=== PATIENT | female | born 1990 | race Two or more races ===

== ENCOUNTER 2023-03-30 12:26 | Emergency (ER) | payer BC ==
[~2023-03-30] VITALS: Ht 157.5 cm; Wt 59.0 kg
[2023-03-30 12:27] VITALS: O2SAT 99
[2023-03-30] MEDS: IBUPROFEN 600MG TABLET PO ONE (13:31)
[2023-03-30] MEDS ORDERED: IBUP-2029 MT (13:50)
[2023-03-30 14:24] VITALS: BP 120/74; PULSE 78; RESP 16; TEMP 97.2
== END 2023-03-30 14:28 | disposition home or self-care (01) ==
LOC: ER 12:49
DX: N64.4 Mastodynia (principal); R07.89 Other chest pain; Z98.890 Other specified postprocedural states
CPT/HCPCS: 71045; 93005; 99283

== ENCOUNTER 2023-04-09 18:35 | Emergency (ER) | payer BC ==
[~2023-04-09] VITALS: Ht 157.5 cm; Wt 62.0 kg
[~2023-04-09 18:35] MED LIST: IBUP-2029 MT
[2023-04-09 18:52] VITALS: O2SAT 100
[2023-04-09 19:55] LABS: HEMATOCRIT. 36.9 % (36.0-48.0); HEMOGLOBIN. 12.5 g/dL (12.0-16.0); MEAN CORPUSCULAR HEMOGLOBIN 29.1 pg (28.0-32.0); MEAN CORPUSCULAR HGB CONC 33.7 g/dL (31.0-37.0); MEAN CORPUSCULAR VOLUME 86.1 fL (81.0-99.0); MEAN PLATELET VOLUME 7.2 fl (7.4-10.4); PLATELET 234 x1000/uL (130-400); RED BLOOD CELL COUNT 4.29 mill/uL (4.2-5.4); RED CELL DISTRIBUTION WIDTH 12.9 % (11.6-14.6); WHITE BLOOD COUNT 5.5 x1000/uL (4.5-11.0)
[2023-04-09 19:56] LABS: DIFFERENTIAL COMMENT 1
[2023-04-09 20:09] LABS: ALANINE AMINOTRANSFERASE 8 IU/L (10-49); ALBUMIN 4.7 g/dL (3.2-4.8); ASPARTATE AMINOTRANSFERASE 20 IU/L (<34); BILIRUBIN TOTAL 0.6 mg/dL (0.1-1.0); CALCIUM 9.2 mg/dL (8.7-10.4); CARBON DIOXIDE 24 mEq/L (21-32); CHLORIDE 107 mEq/L (98-107); CREATININE 0.9 mg/dL (0.6-1.0); GLUCOSE 106 mg/dL (70-105); POTASSIUM 3.7 mEq/L (3.5-5.1); PROTEIN TOTAL 7.4 g/dL (6.0-8.3); SODIUM 138 mEq/L (136-145); UREA NITROGEN BLOOD 10 mg/dL (9-23)
[2023-04-09 20:10] LABS: TROPONIN I HIGH SENSITIVITY < 4 ng/L (3.0-34)
[2023-04-09 20:13] LABS: PLATELET ESTIMATE NORMAL
[2023-04-09 20:15] LABS: HCG SCREEN NEGATIVE
[2023-04-09 21:47] VITALS: BP 137/89; PULSE 99; RESP 16; TEMP 99.6
[2023-04-09] MEDS: ACETAMINOPHEN 325MG TABLET PO ONE (21:47)
[2023-04-09] MEDS: IBUPROFEN 400MG TABLET PO ONE (21:47)
[2023-04-09] MEDS ORDERED: IBUP-2028 MT (21:57)
[2023-04-09] MEDS ORDERED: TOPUD MT (21:57)
== END 2023-04-09 22:48 | disposition home or self-care (01) ==
LOC: ER 18:35
DX: R07.9 Chest pain, unspecified (principal); Z98.890 Other specified postprocedural states; Z20.822 Contact with and (suspected) exposure to COVID-19
CPT/HCPCS: 36415; 71045; 80053; 81025; 83880; 84484; 84703; 85025; 85379; 87426; 87804; 93005; 99285

== ENCOUNTER 2024-10-01 07:53 | Emergency (ER) | payer BC, MEDICAID ==
[~2024-10-01] VITALS: Ht 157.5 cm; Wt 61.0 kg
[~2024-10-01 07:53] MED LIST changes: +IBUP-2028 MT; +TOPUD MT
[2024-10-01 07:58] VITALS: O2SAT 98
[2024-10-01 08:29] VITALS: BP 110/77; PULSE 99; RESP 18; TEMP 37.2; O2SAT 98
== END 2024-10-01 09:56 | disposition home or self-care (01) ==
LOC: ER 07:53
DX: U07.1 COVID-19 (principal); Z79.899 Other long term (current) drug therapy; Z98.890 Other specified postprocedural states
CPT/HCPCS: 87420; 87426; 87804; 99283

== ENCOUNTER 2024-10-06 09:37 | Emergency (ER) | payer MEDICAID ==
[~2024-10-06] VITALS: Ht 157.5 cm; Wt 63.0 kg
[2024-10-06 09:47] VITALS: O2SAT 99
[2024-10-06 10:36] VITALS: BP 130/85; PULSE 79; RESP 16; TEMP 36.9; O2SAT 99
== END 2024-10-06 10:38 | disposition home or self-care (01) ==
LOC: ER 09:37
DX: U07.1 COVID-19 (principal); B34.9 Viral infection, unspecified
CPT/HCPCS: 99282

== ENCOUNTER 2024-12-05 13:54 | Emergency (ER) | payer MEDICAID ==
[~2024-12-05] VITALS: Ht 157.5 cm; Wt 64.0 kg
[~2024-12-05 13:54] MED LIST changes: +IBUP-1455 MT; -IBUP-2029 MT
[2024-12-05 13:58] VITALS: O2SAT 99
[2024-12-05] MEDS: LIDOCAINE 5% PATCH TOP SCH (15:52)
[2024-12-05] MEDS: KETOROLAC 30MG/ML VIAL IM ONE (15:53)
[2024-12-05] MEDS ORDERED: ACET-2708 MT (15:56)
[2024-12-05] MEDS ORDERED: LIDO-53 TP (15:56)
[2024-12-05 16:03] VITALS: BP 140/91; PULSE 80; RESP 16; TEMP 37.1; O2SAT 99
== END 2024-12-05 16:04 | disposition home or self-care (01) ==
LOC: ER 13:54
DX: M54.50 Low back pain, unspecified (principal); M54.2 Cervicalgia; I10 Essential (primary) hypertension
CPT/HCPCS: 81025; 99282; J1885

== ENCOUNTER 2024-12-15 20:42 | Emergency (ER) | payer MEDICAID, OTHER ==
[~2024-12-15] VITALS: Ht 157.5 cm; Wt 68.4 kg
[~2024-12-15 20:42] MED LIST changes: +ACET-2708 MT; +LIDO-53 TP
[2024-12-15 20:45] VITALS: BP 139/85; PULSE 84; RESP 16; TEMP 36.8; O2SAT 100
[2024-12-15 20:49] VITALS: O2SAT 99
[2024-12-15] MEDS: KETOROLAC 15MG/ML VIAL IM ONE (23:30)
[2024-12-15] MEDS: LIDOCAINE 5% PATCH TOP SCH (23:30)
[2024-12-16] MEDS ORDERED: NAPR-1176 MT (00:29)
[2024-12-16] MEDS ORDERED: CYCL5TAB3 MT (00:29)
[2024-12-16 00:31] VITALS: TEMP 98.3
[2024-12-16] MEDS: ACETAMINOPHEN 325MG TABLET PO ONE (00:31)
== END 2024-12-16 01:29 | disposition home or self-care (01) ==
LOC: ER 20:42
DX: M54.50 Low back pain, unspecified (principal); M54.6 Pain in thoracic spine; R51.9 Headache, unspecified; Z79.1 Long term (current) use of non-steroidal anti-inflammatories (NSAID); V49.9XXA Car occupant (driver) (passenger) injured in unspecified traffic accident, initial encounter; Y92.410 Unspecified street and highway as the place of occurrence of the external cause; Y93.89 Activity, other specified; Y99.8 Other external cause status
CPT/HCPCS: 81025; 72128; 99285; 96372; J1885; Z7610 ×2